=== PATIENT | female | born 1970 ===

== ENCOUNTER 2016-07-25 13:00 | Emergency (ER) | payer BC ==
[2016-07-25] MEDS ORDERED: Acetaminophen TAB* 325 MG PO ONE (14:27)
--- NOTE | 2016-07-25 15:35 | RAD ---
Indication: LEFT fourth finger pain following injury 10 days ago. Comparison: None. Technique: 3 views LEFT fourth finger REPORT AND IMPRESSION: Nondisplaced fracture through the proximal metaphysis of the distal phalanx without definitive involvement of the articular surface reference the lateral view. No additional fracture evident. Normal articular alignment. Soft tissue swelling greatest distally.
[2016-07-25 15:40] VITALS: BP 131/69
--- NOTE | 2016-07-25 16:50 | UC ---
Aditya Echavarria Janilya, scribed for Tomasa Angel MD on 07/25/16 at 1448 . General HPI - HPI Summary HPI Summary: A 45 y/o female came in to [facility] presenting w/ a gradual onset of constant general complaints for about a week. Severity rated 8/10 per triage note. Pt reports her dog pulled her left 4th finger on Monday, July 10, 2016. According to pt, it was extremely painful and the finger got swollen and blue. Pt states it was bent back. Then, pt traveled to [place] from from 2016 to 07/23/2016. Pt states she possibly unknowingly swam in a polluted body of water because she noticed that her finger got hot, puffy, and itchy. When she arrived from [place] on July 23, 2016, pt says she felt like she was "hit by a truck". She reports chills, fever, BYNUM, visionary changes (blurry vision), joint (ankle) and muscle pain, dark urine. Pt denies any noticeable rashes, pink eye, cough. Pt has been taking Tylenol for her BYNUM and fever. Pt states she did get a few mosquito bites while she was in [place]. She did not take malaria prophylaxis and it was not recommended for [place]. Her daughter recently complained of similar Sx 2 weeks ago before her trip. However, pt thinks it is due to mono. Her who was also on the trip only experienced nausea on one day. Although pt has not had West Nile Virus, Dengue, or Yellow Fever, pt does not think she has been vaccinated against these diseases. Pt has not had a flu shot. Pt is currently on her menstrual cycle and her has had a vasectormy. Pt has not traveled to [place] and has not donated blood or tissue. - History of Current Complaint Chief Complaint: UCGeneralIllness Stated Complaint: FEVER BODYACHES Time Seen by Provider: 07/25/16 14:34 Hx Obtained From: Patient Onset/Duration: Gradual Onset, Lasting Days, Still Present Timing: Constant Onset Severity: Moderate Current Severity: Moderate Pain Intensity: 8 Associated Signs & Symptoms: Positive: Fever, Headache, Other - joint pains and muscles pains. Negative: Cough - Allergy/Home Medications Allergies/Adverse Reactions: Allergies Allergy/AdvReac Type Severity Reaction Status Date / Time No Known Allergies Allergy Verified 07/25/16 14:02 PMH/Surg Hx/FS Hx/Imm Hx Previously Healthy: Yes Endocrine History Of: Denies: Diabetes, Thyroid Disease Cardiovascular History Of: Denies: Cardiac Disorders, Hypertension, Pacemaker/ICD Respiratory History Of: Denies: COPD, Asthma GI/ History Of: Denies: Ulcer, Renal Disease Cancer History Of: Denies: Breast Cancer - Surgical History Surgical History: Yes Surgery Procedure, Year, and Place: ARTHROSCOPIC -Lt KNEE - Family History Known Family History: Positive: Hypertension, Other - CVA - Social History Lives: With Family Alcohol Use: Occasionally Substance Use Type: None Smoking Status (MU): Never Smoked Tobacco Review of Systems Constitutional: Fever, Chills Skin: Negative - pt denies rashes Eyes: Negative - pt denies pink eye. pt reports visionary changes (blurry vision than baseline). ENT: Negative Respiratory: Negative - pt denies cough Cardiovascular: Negative Gastrointestinal: Negative Genitourinary: Other - pt reports "dark urine" Motor: Negative Neurovascular: Negative Musculoskeletal: Arthralgia, Decreased ROM - pain w/ active ROM of left 4th finger, Myalgia Neurological: Headache Psychological: Negative All Other Systems Reviewed And Are Negative: Yes Physical Exam Triage Information Reviewed: Yes Appearance: Well-Appearing, Well-Nourished, Pain Distress Vital Signs: Initial Vital Signs Temp 102.3 F 07/25/16 13:55 Pulse 82 07/25/16 13:55 Resp 18 07/25/16 13:55 BP 134/83 07/25/16 13:55 Pulse Ox 100 07/25/16 13:55 Vital Signs Reviewed: Yes Eyes: Positive: Conjunctiva Clear, Other: - PERRL, EOMI ENT: Positive: Normal ENT inspection, Hearing grossly normal. Negative: Muffled /hoarse voice Neck: Positive: Supple, Nontender, No Lymphadenopathy Respiratory: Positive: Lungs clear, Normal breath sounds, No respiratory distress Cardiovascular: Positive: RRR, No Murmur, Pulses Normal, Brisk Capillary Refill Musculoskeletal: Positive: Strength Intact, ROM Intact, Other: - 4th left finger painful with movement; no pain w/ passive ROM, only with active ROM. small white dot lateral aspect of 4th finger, swelling and redness DIP. Neurological: Positive: Alert, Muscle Tone Normal Psychological Exam: Normal Skin Exam: Other - Ecchymosis of PIP to DIP of ventral surface left. Pin point whiteness of lateral aspect of left 4th finger nail. Redness of entire DIP. 2-3 mosquito bites left ankle, no rash. Diagnostics - Radiology finger xray Xray Interpretation: Positive (See Comments) - REPORT AND IMPRESSION: Nondisplaced fracture through the proximal metaphysis of the distal phalanx without definitive involvement of the articular surface reference the lateral view. No additional fracture evident. Normal articular alignment. Soft tissue swelling greatest distally. Radiology Interpretation Completed By: Radiologist Re-Evaluation - Re-Evaluation First Eval Re-Evaluation Time: 15:40 - discussed results and health department questions and recommendations Change: Unchanged Course/Dx - Course Course Of Treatment: Pt was recommended barrier method of control for the next 8 weeks. However, pt reports that pt's had a vasectomy on two occasions. Pt has not donated blood, sperm, or tissue. And pt has not recently been to [place]. Pt was warned that dengue can become hemmorhagic and advised against ibuprofen, aspirin, and non-steroidal anti-inflammatory drugs; pt was recommended Tylenol for BYNUM or joint/muscle pains and fever. Influenza A, influenza B, and Strep Rapid tests are all negative. Pt's fourth finger has one spot of whiteness that is not significant enough to be the source of her high fever. - Differential Dx - Multi-Symptom Differential Diagnoses: Other - influenza, strep, zika, chikungunya, dengue Provider Diagnoses: fever with travel hx to [place]. finger fracture. paronychia - Physician Notifications Discussed Patient Care With: Dr. Villatoro (Health Department) at 1450: discussed pt care and authorized Zika tests on blood and urine. Dr. Villatoro (Health Department) at 1535: discussed pt care and additional pertinent information about pt's recent travels. Discharge - Discharge Plan Condition: Stable Disposition: HOME Prescriptions: Cephalexin CAP* [Keflex 500 CAP*] 500 mg PO QID #40 cap Patient Education Materials: Fever in Adults (ED), Zika Virus (ED), Finger Fracture (ED), Paronychia (ED), Dengue Virus (ED) Referrals: Silvia Garza MD [Primary Care Provider] - Pete Tomlin MD [Medical Doctor] - 1 Week Additional Instructions: We have spoken with Shauna of the [facility] Department, and she has authorized the Zika testing for you. This is blood and urine testing, which can only be done at the [facility] main hospital lab. I have sent the prescription for this electronically. We have also sent orders for chikungunya and dengue testing. As we have discussed you should use a barrier method for 6 months because a man can pass Zika in the semen for six months. We have started an antibiotic for the possibility of a paronychia developing on your left fourth finger. The health department will contact urgent care if you need further testing and we will contact you. The results will probably not be available until next week. Do not take ibuprofen for fever because if you have dengue fever you do not want to develop hemorrhagic dengue. You have a fracture of the tip of your fourth finger. You should have definite follow up with orthopedics for this, Dr. Tomlin. Wear the splint until you are seen by orthopedics. We have started an antibiotic for the possibility of a paronychia developing on your left fourth finger. Follow up with Dr. Garza also. She should also get results from the health department. Return to urgent care if needed for any new or worsening symptoms. The documentation as recorded by the Aditya payne Janilya accurately reflects the service I personally performed and the decisions made by me, Tomasa Angel MD.
== END 2016-07-25 16:00 | disposition home or self-care (01) ==
LOC: UCEAST 13:00
DX: R50.9 Fever, unspecified (principal); L03.012 Cellulitis of left finger; S62.605A Fracture of unspecified phalanx of left ring finger, initial encounter for closed fracture; X50.1XXA Overexertion from prolonged static or awkward postures, initial encounter
CPT/HCPCS: 73140; 81003; 84702; 87502; 87651; 99213; A9270-GY; G0463